=== PATIENT | female | born 1985 | race African-American/Black ===

== ENCOUNTER 2016-10-16 16:44 | Emergency (ER) | payer OTHER ==
[2016-10-16 16:51] VITALS: BP 142/88
== END 2016-10-16 18:40 | disposition home or self-care (01) ==
LOC: ED 16:44 → EDBD 16:44 → ED 18:40
DX: S96.912A Strain of unspecified muscle and tendon at ankle and foot level, left foot, initial encounter (principal); S80.02XA Contusion of left knee, initial encounter; R03.0 Elevated blood-pressure reading, without diagnosis of hypertension; W17.89XA Other fall from one level to another, initial encounter; Y93.89 Activity, other specified; Y99.8 Other external cause status; Y92.89 Other specified places as the place of occurrence of the external cause